=== PATIENT | male | born 1975 | race Caucasian/White ===

== ENCOUNTER 2022-05-05 09:17 | Emergency (ER) | payer OTHER, BC ==
[~2022-05-05] VITALS: Ht 175.3 cm; Wt 95.3 kg
[~2022-05-05 09:17] MED LIST: HYDR-4272 PO; IBUP-1971 PO
[2022-05-05 09:22] VITALS: BP_SYST 134
--- NOTE | 2022-05-05 09:27 | NUR ---
Patient to ER bed 3 to gown for evaluation. Side rails up. Report given to Melissa NEWSOME.
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
--- NOTE | 2022-05-05 09:36 | NUR ---
ER at bedside examining patient.
[2022-05-05] MEDS ORDERED: LIDO1ADH22 TP (09:40)
[2022-05-05] MEDS ORDERED: METH-634 PO (09:40)
[2022-05-05] MEDS ORDERED: NAPR-1172 PO (09:40)
[2022-05-05] MEDS ORDERED: KETOROLAC TROMETHAMINE 30 MG VIAL IM ONE (09:45)
[2022-05-05] MEDS ORDERED: LIDOCAINE PATCH 5% 1 EA TP ONE (09:45)
--- NOTE | 2022-05-05 10:04 | NUR ---
Patient given written and verbal discharge instructions and verbalizes understanding. ER MD discussed with patient the results and treatment provided. Patient in stable condition. ID arm band removed. Rx of Robaxin, Lidocaine patch, amd Naproxen given. Patient educated on pain management and to follow up with PMD. Pain Scale 0/10. Opportunity for questions provided and answered. Medication side effect fact sheet provided.
== END 2022-05-05 10:04 | disposition home or self-care (01) ==
LOC: SED 09:17
DX: S16.1XXA Strain of muscle, fascia and tendon at neck level, initial encounter (principal); E11.9 Type 2 diabetes mellitus without complications; I10 Essential (primary) hypertension; Z79.899 Other long term (current) drug therapy; V89.2XXA Person injured in unspecified motor-vehicle accident, traffic, initial encounter; Y93.89 Activity, other specified; Y92.89 Other specified places as the place of occurrence of the external cause; Y99.8 Other external cause status
CPT/HCPCS: 99283; 96372; J1885

== ENCOUNTER 2022-12-22 08:38 | Emergency (ER) | payer OTHER, BC ==
[~2022-12-22] VITALS: Ht 175.3 cm; Wt 95.3 kg
[2022-12-22 08:38] VITALS: BP_SYST 152
[~2022-12-22 08:38] MED LIST changes: +LIDO1ADH22 TP; +METH-634 PO; +NAPR-1172 PO
--- NOTE | 2022-12-22 08:38 | NUR ---
BROUGHT BACK TO BED #7 AND TRIAGED. REPORT GIVEN TO SATHISH
--- NOTE | 2022-12-22 08:51 | NUR ---
DR LANDRY IN ROOM FOR EXAM.
--- NOTE | 2022-12-22 09:04 | NUR ---
PT COMES TO ER WITH COMPLAINTS OF CONGESTION/FLU LIKE SYMPTOMS X 3 DAYS. DENIES ANY CHEST PAIN, BUT DOES HAVE HISTORY OF AFIB. RESP EVEN AND UNLABORED, DENIES ANY SOB, ON RA @98%. SKIN W/D/I. WILL CONT TO MONITOR.
--- NOTE | 2022-12-22 09:05 | NUR ---
EKG BEING DONE IN ROOM
[2022-12-22] MEDS ORDERED: PRED20TA PO (09:09)
[2022-12-22] MEDS ORDERED: ZIT250 PO (09:09)
[2022-12-22] MEDS ORDERED: ALBMDI INH (09:09)
--- NOTE | 2022-12-22 09:52 | NUR ---
Patient given written and verbal discharge instructions and verbalizes understanding. ER MD discussed with patient the results and treatment provided. Patient in stable condition. ID arm band removed. Rx of PREDNISONE, ALBUTEROL, ZITHROMAX given. Patient educated on pain management and to follow up with PMD. Pain Scale 0/10. Opportunity for questions provided and answered. Medication side effect fact sheet provided.
== END 2022-12-22 09:52 | disposition home or self-care (01) ==
LOC: SED 08:38
DX: J20.9 Acute bronchitis, unspecified (principal); R06.02 Shortness of breath; R05.9 Cough, unspecified; R09.81 Nasal congestion; E11.9 Type 2 diabetes mellitus without complications; I10 Essential (primary) hypertension; Z79.899 Other long term (current) drug therapy
CPT/HCPCS: 71045; 93005; 99283